=== PATIENT | male | born 2000 | race Caucasian/White ===

== ENCOUNTER 2024-03-20 23:23 | Emergency (ER) | payer MEDICAID ==
[~2024-03-20] VITALS: Ht 172.7 cm; Wt 90.0 kg
[2024-03-21 00:34] VITALS: O2SAT 96
[2024-03-21] MEDS: DIPHENHYDRAMINE 50MG/ML VIAL IM ONE (00:57)
[2024-03-21] MEDS: HALOPERIDOL LACTATE 5MG/ML VIAL IM ONE (00:57)
[2024-03-21] MEDS: LORAZEPAM 2MG/ML INJ IM ONE (00:57)
[2024-03-21 02:30] LABS: BASOPHILS % 0.2 % (0.0-2.0); EOSINOPHILS % 2.8 % (0.0-5.0); HEMATOCRIT. 41.3 % (42.0-52.0); HEMOGLOBIN. 13.2 g/dL (14.0-18.0); LYMPHOCYTES % 19.8 % (20.0-50.0); MEAN CORPUSCULAR VOLUME 84.4 fL (80.0-94.0); MEAN PLATELET VOLUME 7.9 fl (7.4-10.4); MONOCYTES % 9.8 % (2.0-8.0); NEUTROPHILS % 67.4 % (40.0-76.0); PLATELET 255 x1000/uL (130-400); RED CELL DISTRIBUTION WIDTH 14.2 % (11.6-14.6); WHITE BLOOD COUNT 12.8 x1000/uL (4.5-11.0)
[2024-03-21 02:34] LABS: CHLORIDE 106 mEq/L (98-107); POTASSIUM 3.6 mEq/L (3.5-5.1); SODIUM 140 mEq/L (136-145)
[2024-03-21 02:35] LABS: CALCIUM 10.1 mg/dL (8.7-10.4); CARBON DIOXIDE 27 mEq/L (21-32)
[2024-03-21 02:40] LABS: CREATININE 0.8 mg/dL (0.6-1.3); GLUCOSE 102 mg/dL (70-105); UREA NITROGEN BLOOD 8 mg/dL (9-23)
[2024-03-21 02:42] LABS: ACETAMINOPHEN < 2 ug/mL (10-30)
[2024-03-21 03:10] LABS: HIV 1/2 AB P24AG Negative (Negative)
[2024-03-21 03:23] LABS: ETHANOL BLOOD < 10 mg/dL (<10)
[2024-03-21 05:27] LABS: HEPATITIS B SURFACE ANTIGEN NEGATIVE; HEPATITIS C VIR.AB < 0.02 INDEXVAL (0.00-0.80)
[2024-03-21] MEDS: RISPERIDONE 1MG TABLET PO SCH (10:45)
[2024-03-21] MEDS: CITALOPRAM HYDROBROMIDE 10MG TABLET PO SCH (10:45)
[2024-03-21] MEDS: TRIHEXYPHENIDYL HCL 2 MG TABLET PO SCH (10:45)
[2024-03-22 16:00] VITALS: BP 132/75; PULSE 86; RESP 17; TEMP 97.6
== END 2024-03-22 18:07 | disposition short-term general hospital (02) ==
LOC: ER 23:23
DX: R46.2 Strange and inexplicable behavior (principal)
CPT/HCPCS: 80048; 80307; 80329; 80320; 85025; 36415; 99291; 87340; 86803; 96372; J1200; J1630; J2060; G0480